=== PATIENT | female | born 1985 | race Caucasian/White ===

== ENCOUNTER 2017-11-28 09:47 | Outpatient (CLI) | END 2017-11-28 11:59 | disposition home or self-care (01) ==

== ENCOUNTER 2017-12-05 09:49 | Outpatient (CLI) | END 2017-12-05 14:22 | disposition home or self-care (01) ==

== ENCOUNTER 2018-01-04 09:46 | Inpatient (IN) | END 2018-01-07 13:38 | disposition home or self-care (01) | DRG 766 ==